=== PATIENT | female | born 1995 | race American Indian/Alaskan Native ===

== ENCOUNTER 2019-01-18 20:00 | Emergency (ER) | payer OTHER ==
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
[2019-01-18 20:45] VITALS: BP 136/90
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
[2019-01-18] MEDS ORDERED: TORADOL IM ONE (23:15)
== END 2019-01-18 21:10 | disposition home or self-care (01) ==
LOC: ED 20:00
DX: S16.1XXA Strain of muscle, fascia and tendon at neck level, initial encounter (principal); S46.912A Strain of unspecified muscle, fascia and tendon at shoulder and upper arm level, left arm, initial encounter; R51 Headache; Z79.899 Other long term (current) drug therapy; V89.2XXA Person injured in unspecified motor-vehicle accident, traffic, initial encounter; Y93.89 Activity, other specified; Y92.488 Other paved roadways as the place of occurrence of the external cause; Y99.8 Other external cause status
CPT/HCPCS: 70450; 73030; 99283; J1885

== ENCOUNTER 2019-05-23 00:20 | Emergency (ER) | payer SELFPAY | END 2019-05-23 03:42 | disposition home or self-care (01) | LOC: ED 00:20 | CPT/HCPCS: 87210; 87591; 96372; 99283; J1100 ==